=== PATIENT | female | born 1995 | race Caucasian/White ===

== ENCOUNTER 2022-10-13 15:41 | Emergency (ER) | payer OTHER ==
[2022-10-13 15:56] VITALS: BP 114/55; PULSE 69; RESP 17; TEMP 97.9; BMI 38.0
[2022-10-13 17:14] LABS: BASO % 0.3 % (0-2.0); EOS % 0.8 % (0-4.5); HEMATOCRIT 35.2 % (32.4-45.2); HEMOGLOBIN 10.9 GM/dL (10.7-15.3); LYMPH % 38.7 % (8-40); MCH 23.2 pg (25.7-33.7); MEAN CELL VOLUME 74.9 fl (80-96); MEAN PLT VOLUME 8.1 fl (7.5-11.1); MONO % 7.1 % (3.8-10.2); NEUT % 53.1 % (42.8-82.8); PLATELET COUNT 284 10^3/uL (134-434); RDW 17.5 % (11.6-15.6); WHITE BLOOD COUNT 4.9 K/mm3 (4.0-10.0)
[2022-10-13 17:42] LABS: CALCIUM 8.8 mg/dL (8.5-10.1)
[2022-10-13 17:43] LABS: ALBUMIN 3.7 g/dl (3.4-5.0); BLOOD UREA NITROGEN 17.1 mg/dL (7-18)
[2022-10-13 17:45] LABS: BILIRUBIN,DIRECT 0.1 mg/dL (0.0-0.2)
[2022-10-13 17:46] LABS: CREATININE 0.6 mg/dL (0.55-1.3)
[2022-10-13 17:47] LABS: BILIRUBIN,TOTAL 0.3 mg/dL (0.2-1); TOT PROT 8.1 g/dl (6.4-8.2)
== END 2022-10-13 18:20 | disposition home or self-care (01) ==
LOC: JER 15:41
DX: R07.89 Other chest pain (principal); R20.2 Paresthesia of skin; F41.0 Panic disorder [episodic paroxysmal anxiety]
CPT/HCPCS: 36415; 71046-TC-FY; 80048; 80076; 82550; 84484; 85025; 93005; 93010; 99284-25